=== PATIENT | male | born 1940 | race Caucasian/White ===

== ENCOUNTER 2018-06-09 10:06 | Inpatient (IN) | payer OTHER, MEDICARE | END 2018-06-12 14:23 | disposition home or self-care (01) | LOC: EDH 10:06 → EDHIP 12:43 → 3BH 18:18 | DX: N39.0 Urinary tract infection, site not specified (principal); N45.1 Epididymitis; N40.0 Benign prostatic hyperplasia without lower urinary tract symptoms ==

== ENCOUNTER → 2018-06-17 | Outpatient (CLI) | payer OTHER, MEDICARE ==
[~2018-06-17] MED LIST: ATOR10TA69 PO; CLOP75TA32 PO; FINA5TAB41 PO; IRBE75TA10 PO; LEVO500T2 PO; LOSA50TA64 PO; METO25 PO; NAPR-1023 PO; PRED5TAB PO; SERT50TA12 PO
== END | disposition home or self-care (01) ==
LOC: RAH 07:44
PROVIDERS: ATTEND Family Medicine
DX: N28.89 Other specified disorders of kidney and ureter (principal); I70.90 Unspecified atherosclerosis
CPT/HCPCS: 76700

== ENCOUNTER → 2018-09-24 | Outpatient (CLI) | payer MEDICARE | END | disposition home or self-care (01) | LOC: OIH 08:39 | PROVIDERS: ATTEND Family Medicine | DX: N28.89 Other specified disorders of kidney and ureter (principal); K57.30 Diverticulosis of large intestine without perforation or abscess without bleeding; M43.07 Spondylolysis, lumbosacral region | CPT/HCPCS: 74150 ==

== ENCOUNTER → 2019-03-09 | Outpatient (CLI) | payer MEDICARE ==
--- NOTE | 2019-03-09 11:00 | NUR ---
MBSS COMPLETED. TRANSIENT PENETRATION WITH THIN LIQUIDS VIA CONSECUTIVE CUP SIP. RECOMMEND REGULAR TEXTURE, THIN LIQUIDS VIA CUP SIP, PILLS WHOLE WITH LIQUIDS. RECOMMENDATIONS: 1. GI CONSULT Addendum: 03/09/19 at 1258 by GUERA MORALEZ, [facility] Amended: Links added.
== END | disposition home or self-care (01) ==
LOC: RAH 10:42
PROVIDERS: ATTEND Family Medicine
DX: T17.908A Unspecified foreign body in respiratory tract, part unspecified causing other injury, initial encounter (principal); R13.10 Dysphagia, unspecified; X58.XXXA Exposure to other specified factors, initial encounter; Y93.89 Activity, other specified; Y92.89 Other specified places as the place of occurrence of the external cause; Y99.8 Other external cause status
CPT/HCPCS: 74230; 92611

== ENCOUNTER → 2019-11-30 | Outpatient (CLI) | payer MEDICARE ==
[~2019-11-30] MED LIST changes: +IOHEXOL-350 75 ML VIAL IV ONE; -IRBE75TA10 PO; +IRBE75TA9 PO
== END | disposition home or self-care (01) ==
LOC: RAH 09:55
PROVIDERS: ATTEND Family Medicine
DX: I63.9 Cerebral infarction, unspecified (principal); I70.0 Atherosclerosis of aorta
CPT/HCPCS: 70496; 70498; Q9967

== ENCOUNTER 2020-01-13 08:39 | Emergency (ER) | payer MEDICARE ==
[~2020-01-13 08:39] MED LIST changes: -IOHEXOL-350 75 ML VIAL IV ONE
[2020-01-13 09:29] LABS: BASOPHILS % (AUTO) 0.6 % (0.0-5.0); EOSINOPHILS % (AUTO) 0.2 % (0.0-8.0); HEMATOCRIT 37.5 % (42-54); LYMPHOCYTES % (AUTO) 2.6 % (21.0-51.0); MEAN CORPUSCULAR HEMOGLOBIN 22.4 pg (27.0-33.0); MEAN CORPUSCULAR HGB CONC 30.7 g/dL (32.0-36.0); MONOCYTES % (AUTO) 6.6 % (3.0-13.0); NEUTROPHILS % (AUTO) 89.6 % (40.0-77.0); PLATELET COUNT (AUTO) 150 K/uL (130-400); RED BLOOD CELL COUNT(AUTO) 5.14 MIL/uL (4.50-6.20); WHITE BLOOD COUNT (AUTO) 16.3 K/uL (4.8-10.8)
[2020-01-13 09:42] LABS: INR 1.04 (0.85-1.15); PARTIAL THROMBOPLASTIN TIME 26.4 SEC (26.3-35.5); PROTHROMBIN TIME 11.2 SEC (9.6-11.6)
[2020-01-13 10:15] LABS: ALBUMIN 3.3 g/dL (3.5-5.0); BILIRUBIN,DIRECT 0.1 mg/dL (0.0-0.3); BILIRUBIN,TOTAL 0.5 mg/dL (0.2-1.0); TOTAL PROTEIN, SERUM 6.9 g/dL (6.0-8.3)
[2020-01-13 10:16] LABS: APPEARANCE,URINE Clear (CLEAR); BILIRUBIN,URINE Negative (NEGATIVE); COLOR,URINE Yellow (YELLOW); GLUCOSE, URINE (UA) Negative (NEGATIVE); KETONES,URINE Trace mg/dL (NEGATIVE); LEUKOCYTE ESTERASE ,URINE Large (NEGATIVE); NITRATE,URINE Negative (NEGATIVE); OCCULT BLOOD,URINE Moderate (NEGATIVE); PROTEIN,URINE Trace mg/dL (NEGATIVE)
[2020-01-13 10:27] LABS: BACTERIA,URINE Few /HPF (None Seen); RBC,URINE 0-1 /HPF (0-1); SQUAMOUS EPITHELIAL CELL,UR Rare /HPF (0-2)
[2020-01-13] MEDS ORDERED: POTASSIUM BICARB/CIT AC 25 MEQ TABLET.EFF ONE (12:21)
== END 2020-01-13 14:04 | disposition home or self-care (01) ==
LOC: EDH 08:39
DX: E87.6 Hypokalemia (principal); N39.0 Urinary tract infection, site not specified; Z20.828 Contact with and (suspected) exposure to other viral communicable diseases; M19.90 Unspecified osteoarthritis, unspecified site; I10 Essential (primary) hypertension; Z79.899 Other long term (current) drug therapy; Z88.1 Allergy status to other antibiotic agents
CPT/HCPCS: 36415; 70450; 71045; 80048; 80076; 81001; 82550; 83605; 84484; 85025; 85610; 85730; 87040; 87077; 87088; 87186; 87426; 93005; 99285; U0003

== ENCOUNTER 2020-02-22 11:02 | Inpatient (IN) | payer MEDICARE ==
[~2020-02-22] VITALS: Ht 170.2 cm; Wt 62.1 kg
[2020-02-22 11:41] LABS: BASOPHILS % (AUTO) 1.7 % (0.0-5.0); EOSINOPHILS % (AUTO) 2.4 % (0.0-8.0); HEMATOCRIT 39.9 % (42-54); LYMPHOCYTES % (AUTO) 20.5 % (21.0-51.0); MEAN CORPUSCULAR HEMOGLOBIN 22.4 pg (27.0-33.0); MEAN CORPUSCULAR HGB CONC 30.1 g/dL (32.0-36.0); MEAN CORPUSCULAR VOLUME 74.6 fL (79-99); MONOCYTES % (AUTO) 11.8 % (3.0-13.0); NEUTROPHILS % (AUTO) 63.1 % (40.0-77.0); PLATELET COUNT (AUTO) 165 K/uL (130-400); RED BLOOD CELL COUNT(AUTO) 5.35 MIL/uL (4.50-6.20); RED CELL DISTRIBUTION WIDTH 15.2 % (11.0-15.5); WHITE BLOOD COUNT (AUTO) 5.9 K/uL (4.8-10.8)
[2020-02-22 11:49] LABS: POTASSIUM 4.1 mmol/L (3.5-5.1)
[2020-02-22 11:54] LABS: ALBUMIN 3.5 g/dL (3.5-5.0); BILIRUBIN,TOTAL 0.4 mg/dL (0.2-1.0); TOTAL PROTEIN, SERUM 7.1 g/dL (6.0-8.3)
[2020-02-22 11:55] LABS: INR 1.02 (0.85-1.15); PARTIAL THROMBOPLASTIN TIME 23.7 SEC (26.3-35.5)
[2020-02-22 15:24] LABS: APPEARANCE,URINE CLEAR (CLEAR); BILIRUBIN,URINE SMALL (NEGATIVE); COLOR,URINE YELLOW (YELLOW); GLUCOSE, URINE (UA) NEGATIVE (NEGATIVE); KETONES,URINE NEGATIVE (NEGATIVE); LEUKOCYTE ESTERASE ,URINE NEGATIVE (NEGATIVE); NITRATE,URINE NEGATIVE (NEGATIVE); OCCULT BLOOD,URINE NEGATIVE (NEGATIVE); PH,URINE 5.5 (5.0-8.0); PROTEIN,URINE NEGATIVE (NEGATIVE)
[2020-02-22 16:17] LABS: BACTERIA,URINE Few /HPF (None Seen); RBC,URINE 0-1 /HPF (0-1)
[2020-02-22 16:18] LABS: MUCUS,URINE Rare LPF (None Seen); SQUAMOUS EPITHELIAL CELL,UR Rare /HPF (0-2)
[2020-02-22] MEDS ORDERED: DOXYCYCLINE 100MG+NS 250ML 250 ML IV SCH (18:45)
[2020-02-22] MEDS ORDERED: LACTULOSE 20 GM/30 ML UDCUP PO PRN (19:00)
[2020-02-22] MEDS ORDERED: ACETAMINOPHEN 325 MG TAB PO PRN (19:00)
[2020-02-22] MEDS ORDERED: METOPROLOL TARTRATE 25 MG TAB ONE (20:52)
[2020-02-22] MEDS ORDERED: FAMOTIDINE 20MG TAB 20 MG TAB ONE (20:52)
[2020-02-23] VITALS (7 sets, daily range): BP systolic 121–189; BP diastolic 71–90
--- NOTE | 2020-02-23 00:12 | NUR ---
Patient arrived from ER. Laying in bed with no complaints Alert x2. patient blood pressure is elevated 189/90. DR. Aguilar was paged pending call back.
[2020-02-23] MEDS ORDERED: HYDRALAZINE HCL 20 MG/ML VIAL ONE (00:45)
[2020-02-23 05:25] LABS: HEMATOCRIT 40.5 % (42-54); LYMPHOCYTES % (AUTO) 22.8 % (21.0-51.0); MEAN CORPUSCULAR HEMOGLOBIN 22.3 pg (27.0-33.0); MEAN CORPUSCULAR HGB CONC 30.1 g/dL (32.0-36.0); MEAN CORPUSCULAR VOLUME 73.9 fL (79-99); MONOCYTES % (AUTO) 14.9 % (3.0-13.0); PLATELET COUNT (AUTO) 161 K/uL (130-400); RED BLOOD CELL COUNT(AUTO) 5.48 MIL/uL (4.50-6.20); RED CELL DISTRIBUTION WIDTH 15.1 % (11.0-15.5); WHITE BLOOD COUNT (AUTO) 6.1 K/uL (4.8-10.8)
[2020-02-23 05:48] LABS: ALBUMIN 3.4 g/dL (3.5-5.0); BILIRUBIN,TOTAL 0.4 mg/dL (0.2-1.0); CRP QUANTITATIVE 7.8 mg/L (0.00-9.0); POTASSIUM 3.4 mmol/L (3.5-5.1); TOTAL PROTEIN, SERUM 7.3 g/dL (6.0-8.3)
[2020-02-23] MEDS: METOPROLOL TARTRATE 25 MG TAB PO SCH ×3 (09:04→19:53)
[2020-02-23] MEDS: FAMOTIDINE 20MG TAB 20 MG TAB PO SCH ×3 (09:04→19:53)
[2020-02-23] MEDS: ENOXAPARIN SODIUM 30 MG/0.3 ML SQ SCH (09:05)
[2020-02-23] MEDS ORDERED: LEVOFLOXACIN 500 MG/D5W 100 ML 100 ML IV SCH (12:45)
[2020-02-23] MEDS: MEROPENEM 1 GM VIAL IVP SCH (16:09)
--- NOTE | 2020-02-23 16:19 | NUR ---
CM NOTE/IA UNABLE TO MEET WITH PATIENT, NEXT OF KIN CALLED, LAWANDA DANIEL. PER DAUGHTER, PATIENT LIVES WITH SPOUSE, IS INDEPENDENT WITH ADLS, NO USE OF DME OR PROVIDERS SERVICES, SPOUSE HAS POA, AND FEELS SAFE FOR PATIENT TO RETURN HOME ONCE DISCHARGED FROM HOSPITAL. CORRECTED SPOUSE PHONE NUMBER FOLLOWS: CHELY DANIEL . Addendum: 02/23/20 at 1620 by JORDY MACHUCA RN CM Amended: Links added.
[2020-02-23] MEDS ORDERED: LIDOCAINE HCL-MPF 1% 2ML VIAL IJ PRN (20:15)
[2020-02-23] MEDS ORDERED: POTASSIUM CHLORIDE 20MEQ/100ML 100 ML IV PRN (20:15)
[2020-02-23] MEDS ORDERED: POTASSIUM CHLORIDE 10% ELIXIR 20 MEQ/15 ML UDCUP PO PRN (20:15)
[2020-02-23] MEDS ORDERED: ACETAMINOPHEN 650 MG SUPPOSITORY RC ONE (20:37)
[2020-02-23] MEDS: HYDRALAZINE HCL 20 MG/ML VIAL IM PRN (22:37)
[2020-02-23] MEDS: POTASSIUM CHLORIDE 20 MEQ ERTAB PO PRN (22:38)
--- NOTE | 2020-02-23 23:00 | NUR ---
gave report to milind dennis and patient transferred from room 319 to 309
[2020-02-24 03:03] VITALS: BP 139/69
[2020-02-24] MEDS: MEROPENEM 1 GM VIAL IVP SCH ×2 (03:30→16:09)
[2020-02-24 04:10] LABS: BASOPHILS % (AUTO) 1.5 % (0.0-5.0); EOSINOPHILS % (AUTO) 3.6 % (0.0-8.0); HEMATOCRIT 39.1 % (42-54); LYMPHOCYTES % (AUTO) 17.7 % (21.0-51.0); MEAN CORPUSCULAR HEMOGLOBIN 22.7 pg (27.0-33.0); MEAN CORPUSCULAR HGB CONC 30.9 g/dL (32.0-36.0); MEAN CORPUSCULAR VOLUME 73.4 fL (79-99); MONOCYTES % (AUTO) 14.6 % (3.0-13.0); NEUTROPHILS % (AUTO) 62.2 % (40.0-77.0); PLATELET COUNT (AUTO) 179 K/uL (130-400); RED BLOOD CELL COUNT(AUTO) 5.33 MIL/uL (4.50-6.20); RED CELL DISTRIBUTION WIDTH 15.3 % (11.0-15.5); WHITE BLOOD COUNT (AUTO) 7.3 K/uL (4.8-10.8)
[2020-02-24 04:36] LABS: ALBUMIN 3.3 g/dL (3.5-5.0); BILIRUBIN,TOTAL 0.4 mg/dL (0.2-1.0); CREATININE 1.1 mg/dL (0.5-1.5); POTASSIUM 3.8 mmol/L (3.5-5.1); TOTAL PROTEIN, SERUM 7.4 g/dL (6.0-8.3)
[2020-02-24 08:00] VITALS: BP 133/68
[2020-02-24] MEDS: FAMOTIDINE 20MG TAB 20 MG TAB PO SCH ×2 (08:23→21:26)
[2020-02-24] MEDS: POTASSIUM CHLORIDE 20 MEQ ERTAB PO PRN (08:23)
[2020-02-24] MEDS: METOPROLOL TARTRATE 25 MG TAB PO SCH ×2 (08:23→21:26)
[2020-02-24] MEDS: ENOXAPARIN SODIUM 30 MG/0.3 ML SQ SCH (08:23)
[2020-02-24 11:40] VITALS: BP 147/61
--- NOTE | 2020-02-24 15:22 | NUR ---
PATIENT'S IS CONCERNED ABOUT PATIENTS INCREASING CONFUSION IN COMPARISON TO YESTERDAY. SHE BELIEVES THAT MERREM IS MAKING HIM MORE CONFUSED. STATED THAT SHE LOOK IT UP A SIDE EFFECT.
[2020-02-24 16:00] VITALS: BP 129/78
[2020-02-24] MEDS ORDERED: TEMAZEPAM 7.5 MG CAPSULE PO PRN (19:00)
[2020-02-24 20:00] VITALS: BP 162/93
[2020-02-25] VITALS (7 sets, daily range): BP systolic 113–163; BP diastolic 49–93
[2020-02-25] MEDS: MEROPENEM 1 GM VIAL IVP SCH ×2 (03:54→15:13)
[2020-02-25] MEDS: HYDRALAZINE HCL 20 MG/ML VIAL IM PRN (04:08)
[2020-02-25 06:24] LABS: BASOPHILS % (AUTO) 1.7 % (0.0-5.0); EOSINOPHILS % (AUTO) 5.5 % (0.0-8.0); HEMATOCRIT 40.6 % (42-54); LYMPHOCYTES % (AUTO) 21.6 % (21.0-51.0); MEAN CORPUSCULAR HEMOGLOBIN 22.2 pg (27.0-33.0); MEAN CORPUSCULAR HGB CONC 30.3 g/dL (32.0-36.0); MEAN CORPUSCULAR VOLUME 73.4 fL (79-99); MONOCYTES % (AUTO) 16.1 % (3.0-13.0); NEUTROPHILS % (AUTO) 54.8 % (40.0-77.0); PLATELET COUNT (AUTO) 169 K/uL (130-400); RED BLOOD CELL COUNT(AUTO) 5.53 MIL/uL (4.50-6.20); RED CELL DISTRIBUTION WIDTH 15.4 % (11.0-15.5); WHITE BLOOD COUNT (AUTO) 5.8 K/uL (4.8-10.8)
[2020-02-25 06:53] LABS: ALBUMIN 3.2 g/dL (3.5-5.0); BILIRUBIN,TOTAL 0.4 mg/dL (0.2-1.0); CREATININE 1.1 mg/dL (0.5-1.5); POTASSIUM 3.8 mmol/L (3.5-5.1); THYROID STIMULATING HORMONE 0.65 uIU/mL (0.36-3.74); TOTAL PROTEIN, SERUM 7.1 g/dL (6.0-8.3)
[2020-02-25] MEDS: METOPROLOL TARTRATE 25 MG TAB PO SCH ×3 (09:00→21:42)
[2020-02-25] MEDS: ENOXAPARIN SODIUM 30 MG/0.3 ML SQ SCH (09:54)
[2020-02-25] MEDS: FAMOTIDINE 20MG TAB 20 MG TAB PO SCH ×2 (09:54→21:42)
[2020-02-26 03:08] VITALS: BP 126/69
[2020-02-26] MEDS: MEROPENEM 1 GM VIAL IVP SCH ×2 (03:17→15:15)
[2020-02-26 08:58] LABS: HEMATOCRIT 39.5 % (42-54); MEAN CORPUSCULAR HEMOGLOBIN 22.7 pg (27.0-33.0); MEAN CORPUSCULAR HGB CONC 30.6 g/dL (32.0-36.0); MEAN CORPUSCULAR VOLUME 74.2 fL (79-99); PLATELET COUNT (AUTO) 165 K/uL (130-400); RED BLOOD CELL COUNT(AUTO) 5.32 MIL/uL (4.50-6.20); RED CELL DISTRIBUTION WIDTH 15.4 % (11.0-15.5); WHITE BLOOD COUNT (AUTO) 5.3 K/uL (4.8-10.8)
[2020-02-26 09:12] LABS: ALBUMIN 3.1 g/dL (3.5-5.0); BILIRUBIN,TOTAL 0.4 mg/dL (0.2-1.0); CREATININE 1.2 mg/dL (0.5-1.5); POTASSIUM 3.9 mmol/L (3.5-5.1); TOTAL PROTEIN, SERUM 7.1 g/dL (6.0-8.3)
[2020-02-26] MEDS: FAMOTIDINE 20MG TAB 20 MG TAB PO SCH ×2 (09:33→21:43)
[2020-02-26] MEDS: METOPROLOL TARTRATE 25 MG TAB PO SCH ×2 (09:34→21:43)
[2020-02-26] MEDS: ENOXAPARIN SODIUM 30 MG/0.3 ML SQ SCH (09:34)
[2020-02-26 09:38] LABS: BASOPHILS % (MANUAL) 1 % (0-2); EOSINOPHILS % (MANUAL) 10 % (1-6); LYMPHOCYTES % (MANUAL) 33 % (22-44); MONOCYTES % (MANUAL) 8 % (2-9); PLATELET MORPHOLOGY COMMENT ADEQUATE; SEGMENTED NEUTROPHILS % 48 % (40-70)
[2020-02-26 20:00] VITALS: BP 156/64
[2020-02-26 23:39] VITALS: BP 153/74
[2020-02-27 03:52] VITALS: BP 154/72
[2020-02-27] MEDS: MEROPENEM 1 GM VIAL IVP SCH (03:53)
[2020-02-27 06:07] LABS: BASOPHILS % (AUTO) 1.8 % (0.0-5.0); HEMATOCRIT 38.7 % (42-54); LYMPHOCYTES % (AUTO) 25.3 % (21.0-51.0); MEAN CORPUSCULAR HEMOGLOBIN 22.3 pg (27.0-33.0); MEAN CORPUSCULAR VOLUME 74.3 fL (79-99); MONOCYTES % (AUTO) 15.5 % (3.0-13.0); PLATELET COUNT (AUTO) 151 K/uL (130-400); RED BLOOD CELL COUNT(AUTO) 5.21 MIL/uL (4.50-6.20); RED CELL DISTRIBUTION WIDTH 15.1 % (11.0-15.5); WHITE BLOOD COUNT (AUTO) 5.7 K/uL (4.8-10.8)
[2020-02-27 06:24] LABS: BILIRUBIN,TOTAL 0.2 mg/dL (0.2-1.0); CREATININE 1.1 mg/dL (0.5-1.5); POTASSIUM 3.7 mmol/L (3.5-5.1); TOTAL PROTEIN, SERUM 6.9 g/dL (6.0-8.3)
[2020-02-27] MEDS: FAMOTIDINE 20MG TAB 20 MG TAB PO SCH (08:59)
[2020-02-27] MEDS: METOPROLOL TARTRATE 25 MG TAB PO SCH (08:59)
[2020-02-27] MEDS: ENOXAPARIN SODIUM 30 MG/0.3 ML SQ SCH (08:59)
== END 2020-02-27 15:00 | disposition home or self-care (01) | DRG 689 ==
LOC: EDH 11:02 → EDHIP 18:46 → 3DH 23:51 → 3CH 02-23 19:16 → 3BH 02-23 23:33
PROVIDERS: ADMIT Internal Medicine; ATTEND Internal Medicine
DX: N39.0 Urinary tract infection, site not specified (principal); G93.41 Metabolic encephalopathy; Z86.73 Personal history of transient ischemic attack (TIA), and cerebral infarction without residual deficits; I10 Essential (primary) hypertension; E78.5 Hyperlipidemia, unspecified; E87.6 Hypokalemia; I25.10 Atherosclerotic heart disease of native coronary artery without angina pectoris; N40.0 Benign prostatic hyperplasia without lower urinary tract symptoms; Z80.42 Family history of malignant neoplasm of prostate; Z85.828 Personal history of other malignant neoplasm of skin; Z87.440 Personal history of urinary (tract) infections; Z88.0 Allergy status to penicillin; M19.90 Unspecified osteoarthritis, unspecified site; Z90.49 Acquired absence of other specified parts of digestive tract; Z20.828 Contact with and (suspected) exposure to other viral communicable diseases; R53.81 Other malaise; F03.90 Unspecified dementia, unspecified severity, without behavioral disturbance, psychotic disturbance, mood disturbance, and anxiety
CPT/HCPCS: 36415; 70450; 71045; 80053; 81001; 82550; 84145; 84443; 84484; 85025; 85378; 85610; 85730; 86140; 87040; 87088; 87426; 87804; 93005; 97039; G0378; J0360; J1650; J2185; J3490; U0003